=== PATIENT | female | born 2000 | race Caucasian/White ===

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

== ENCOUNTER 2023-02-24 23:37 | Emergency (ER) | payer OTHER, SELFPAY ==
[2023-02-24 23:50] VITALS: BP 139/89; PULSE 85; RESP 17; TEMP 36.6; O2SAT 99; BMI 25.1
[2023-02-24 23:53] VITALS: BMI 25.1
--- NOTE | 2023-02-24 23:53 | PC.NURSE ---
verbal orders received
[2023-02-24 23:54] VITALS: BP 126/77; BP 130/82; BP 139/79; PULSE 105; PULSE 80; PULSE 88
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
[2023-02-24 23:59] LABS: Microscopic, Urine URINE MICROSCOPIC (MICROSCOPIC)
[2023-02-25 00:02] LABS: Appearance,Urine CLOUDY (Clear); Basophils % 0.3 % (0.1-2.0); Bilirubin,Urine Negative (Negative); Blood, Urine TRACE-I (Negative); Color,Urine YELLOW (Yellow); Eosinophils # 0.1 K/mm3 (0.0-0.4); Eosinophils % 0.5 % (0.1-12.0); Glucose,Urine (UA) Negative (Negative); Hematocrit 42.1 % (37.0-47.0); Hemoglobin 13.9 g/dL (12.2-16.2); Ketones,Urine 1+ (Negative); Leukocyte Esterase,Urine 3+ (Negative); Lymphocytes # 2.3 K/mm3 (0.7-4.5); Lymphocytes % 21.8 % (10-50); Mean Corpuscular HGB Conc 33.1 g/dL (31.8-35.4); Mean Corpuscular Hemoglobin 30.6 pg (27.0-31.2); Mean Corpuscular Volume 92.6 fl (81-99); Mean Platelet Volume 8.4 fl (7.4-10.4); Monocytes # 0.4 K/mm3 (0.1-1.0); Monocytes % 3.9 % (1.7-9.3); Neutrophils # 7.7 K/mm3 (1.8-7.8); Neutrophils % 73.5 % (37.0-80.0); Nitrate,Urine Negative (Negative); PH,Urine 6.5 (5.0-8.5); Platelet Count 309 K/mm3 (142-424); Protein,Urine Negative (Negative); Red Blood Count 4.55 M/mm3 (4.20-5.40); Red Cell Distribution Width 13.3 % (11.5-17.5); Specific Gravity, Urine 1.015 (1.005-1.030); Urine Pregnancy, HCG Qual. Positive (Negative); Urobilinogen,Urine 0.2 EU/dl (0.2); White Blood Count 10.4 K/mm3 (4.5-13.0)
[2023-02-25 00:03] LABS: Chloride 100 mmol/L (98-107); Potassium 3.9 mmoL/L (3.5-5.1); Sodium 136 mmol/L (136-145)
[2023-02-25 00:07] LABS: Alanine Aminotransferase 23 U/L (12-78); Albumin Level 4.6 g/dl (3.5-5.0); Albumin/Globulin Ratio 1.2 (1.1-1.8); Alkaline Phosphatase 62 U/L (38-126); Anion Gap 16.9 mEq/L (5-15); Aspartate Amino Transferase 30 U/L (14-36); Bilirubin,Total 0.5 mg/dl (0.2-1.3); Blood Urea Nitrogen 5 mg/dl (7-17); Calcium 9.5 mg/dl (8.4-10.2); Carbon Dioxide 23 mmol/L (22.0-30.0); Creatinine Clearance Estimated 273 mL/min (50-200); Estimated Glomerular Filt Rate 203 ml/min (>60); GFR (African American) 246 ML/MIN (>60); Globulin 3.8 g/dL (1.3-3.2); Glucose 99 mg/dl (74-100); Total Protein,Serum 8.4 g/dl (6.3-8.2)
[2023-02-25 00:12] LABS: Bacteria,Urine 3+ /lpf
[2023-02-25 00:13] LABS: RBC,Urine Occasional #/hpf (0-3); Squamous Epithelial Cell,Urine 20-50 #/hpf (0-5); WBC,Urine 20-50 #/hpf (0-3)
[2023-02-25 00:48] LABS: HCG,Quantitative 149290 mIU/ml (0-5.42)
[2023-02-25 01:32] VITALS: BP 114/74; BP 116/67; BP 121/72; PULSE 63; PULSE 67; PULSE 74
--- NOTE | 2023-02-25 01:34 | PC.NURSE ---
Rounded on pt. Pt advised symptoms remain the same. No other needs voiced at this time.
[2023-02-25 01:56] VITALS: BP 114/74; PULSE 774; RESP 16; TEMP 36.9
== END 2023-02-25 02:06 | disposition home or self-care (01) ==
PROVIDERS: Emergency Provider Emergency Medicine; PCP Emergency Medicine
DX: O21.1 Hyperemesis gravidarum with metabolic disturbance (principal); Z3A.09 9 weeks gestation of pregnancy
CPT/HCPCS: 80053; 81001; 81025; 84702; 85025; 87086; 87088; 87186; 96360; 96361; 99284; 99285

== ENCOUNTER 2023-07-22 17:33 | Outpatient (CLI) | payer OTHER, SELFPAY ==
[2023-07-22 17:56] VITALS: BMI 28.2
[2023-07-22 18:02] LABS: Microscopic, Urine URINE MICROSCOPIC (MICROSCOPIC)
[2023-07-22 18:08] VITALS: BP 131/84; PULSE 112; RESP 18; TEMP 37.2; O2SAT 98; BMI 28.2
[2023-07-22 18:17] LABS: Amphetamine/Metha Screen,Urine Negative ng/ml (<1000); Barbiturates Screen,Urine Negative ng/ml (<200)
[2023-07-22 18:18] LABS: Benzodiazepines Screen,Urine Negative ng/ml (<200); Cannabinoid Screen,Urine Negative ng/ml (<50)
[2023-07-22 18:19] LABS: Cocaine Screen,Urine Negative ng/ml (<300)
[2023-07-22 18:20] LABS: Methadone Screen,Urine Negative ng/ml (<300); Opiate Screen,Urine Negative ng/ml (<300)
[2023-07-22 18:21] LABS: Phencyclidine Screen,Urine Negative ng/ml (<25)
[2023-07-22 18:30] LABS: Bacteria,Urine 2+ /lpf
[2023-07-22 18:33] LABS: Color,Urine Yellow (Yellow)
[2023-07-22 18:34] LABS: Appearance,Urine Clear (Clear); Blood, Urine Negative (Negative); Glucose,Urine (UA) Negative (Negative); Ketones,Urine 1+ (Negative); Nitrate,Urine Negative (Negative); Protein,Urine 1+ (Negative); Specific Gravity, Urine >= 1.030 (1.005-1.030)
[2023-07-22 18:35] LABS: Bilirubin,Urine 1+ (Negative); Leukocyte Esterase,Urine 1+ (Negative); Urobilinogen,Urine 0.2 EU/dl (0.2)
== END 2023-07-22 19:05 | disposition home or self-care (01) ==
LOC: OBOUT 17:37 → OB 17:38
PROVIDERS: Visit Provider Obstetrics & Gynecology
DX: O26.893 Other specified pregnancy related conditions, third trimester (principal); Z3A.31 31 weeks gestation of pregnancy; R11.2 Nausea with vomiting, unspecified
CPT/HCPCS: 59025; 80305; 81001; 87086; 96365; G0463; J2405

== ENCOUNTER 2023-07-31 16:38 | Outpatient (CLI) | payer OTHER, SELFPAY ==
[2023-07-31 17:13] VITALS: BP 136/78; PULSE 95; RESP 18; TEMP 36.9; O2SAT 97; BMI 28.5
[2023-07-31 17:18] LABS: Microscopic, Urine URINE MICROSCOPIC (MICROSCOPIC)
[2023-07-31 17:46] LABS: Appearance,Urine CLEAR (Clear); Bilirubin,Urine Negative (Negative); Blood, Urine Negative (Negative); Color,Urine YELLOW (Yellow); Glucose,Urine (UA) Negative (Negative); Ketones,Urine Negative (Negative); Leukocyte Esterase,Urine 1+ (Negative); Nitrate,Urine Negative (Negative); PH,Urine 6.5 (5.0-8.5); Protein,Urine Negative (Negative); Specific Gravity, Urine 1.025 (1.005-1.030); Urobilinogen,Urine 0.2 EU/dl (0.2)
--- NOTE | 2023-07-31 17:55 | ECG_ITS ---
APPROVED REPORT Exam: Resting ECG HR:87 bpm ECG Measurements Heart Rate 87 AXES GA 157 P 28 QRSd 87 QRS 20 QT 342 T 3 QTc 387 Conclusion SINUS RHYTHM NORMAL ECG UNCONFIRMED REPORT Electronically signed by : Octavio Ferro MD 08/01/2023 13:23:05
[2023-07-31 18:00] LABS: Amphetamine/Metha Screen,Urine Negative ng/ml (<1000); Barbiturates Screen,Urine Negative ng/ml (<200)
[2023-07-31 18:01] LABS: Benzodiazepines Screen,Urine Negative ng/ml (<200); Cannabinoid Screen,Urine Negative ng/ml (<50)
[2023-07-31 18:02] LABS: Cocaine Screen,Urine Negative ng/ml (<300)
[2023-07-31 18:03] LABS: Methadone Screen,Urine Negative ng/ml (<300); Opiate Screen,Urine Negative ng/ml (<300)
[2023-07-31 18:04] LABS: Phencyclidine Screen,Urine Negative ng/ml (<25)
[2023-07-31 18:08] LABS: Squamous Epithelial Cell,Urine Occasional #/hpf (0-5); WBC,Urine Occasional #/hpf (0-3)
== END 2023-07-31 18:40 | disposition home or self-care (01) ==
LOC: OBOUT 16:40 → OB 16:41
PROVIDERS: Visit Provider Obstetrics & Gynecology
DX: O47.03 False labor before 37 completed weeks of gestation, third trimester (principal); Z3A.32 32 weeks gestation of pregnancy
CPT/HCPCS: 59025; 80305; 81001; 87086; 93005; 96365; G0463

== ENCOUNTER → 2023-08-03 13:34 | Outpatient (CLI) | payer OTHER, SELFPAY ==
--- NOTE | 2023-08-03 13:36 | US_ITS ---
FINAL REPORT TECHNIQUE: Ultrasound images of the kidneys and bladder were obtained. CLINICAL HISTORY: CVAT FINDINGS: The right kidney measures 12.6 cm in length. It is normal in echogenicity. There is no hydronephrosis. The left kidney measures 11.3 cm in length. It is normal in echogenicity. There is no hydronephrosis. The spleen is unremarkable. IMPRESSION: Unremarkable renal ultrasound. Reviewed, Interpreted and Dictated by Carlos Jimenez III, MD Transcribed by Shanti Pate Authenticated and [facility]
== END ==
PROVIDERS: Visit Provider Obstetrics & Gynecology
DX: I63.9 Cerebral infarction, unspecified (principal)
CPT/HCPCS: 76770

== ENCOUNTER → 2023-08-08 10:17 | Outpatient (CLI) | payer OTHER, SELFPAY | PROVIDERS: PCP Obstetrics & Gynecology; Visit Provider Obstetrics & Gynecology | DX: Z34.93 Encounter for supervision of normal pregnancy, unspecified, third trimester (principal); Z3A.33 33 weeks gestation of pregnancy | CPT/HCPCS: 87086 ==

== ENCOUNTER 2023-08-09 17:53 | Outpatient (CLI) | payer OTHER, SELFPAY ==
[2023-08-09 18:35] VITALS: BMI 29.0
[2023-08-09 18:46] LABS: Microscopic, Urine URINE MICROSCOPIC (MICROSCOPIC)
[2023-08-09 18:58] LABS: Fetal Membrane Rupture (Rapid) Negative (Negative)
[2023-08-09 19:21] VITALS: BP 129/69; PULSE 96; RESP 16; TEMP 36.7; O2SAT 97; BMI 29.0
[2023-08-09 19:22] LABS: Appearance,Urine CLEAR (Clear); Bilirubin,Urine Negative (Negative); Blood, Urine Negative (Negative); Color,Urine YELLOW (Yellow); Glucose,Urine (UA) Negative (Negative); Ketones,Urine Negative (Negative); Leukocyte Esterase,Urine 2+ (Negative); Nitrate,Urine Negative (Negative); Protein,Urine Negative (Negative); Specific Gravity, Urine 1.015 (1.005-1.030); Urobilinogen,Urine 0.2 EU/dl (0.2)
[2023-08-09 19:23] LABS: Benzodiazepines Screen,Urine Negative ng/ml (<200)
[2023-08-09 19:24] LABS: Amphetamine/Metha Screen,Urine Negative ng/ml (<1000); Barbiturates Screen,Urine Negative ng/ml (<200)
[2023-08-09 19:25] LABS: Cocaine Screen,Urine Negative ng/ml (<300); Methadone Screen,Urine Negative ng/ml (<300)
[2023-08-09 19:26] LABS: Cannabinoid Screen,Urine Negative ng/ml (<50)
[2023-08-09 19:27] LABS: Opiate Screen,Urine Negative ng/ml (<300); Squamous Epithelial Cell,Urine Occasional #/hpf (0-5); WBC,Urine Occasional #/hpf (0-3)
[2023-08-09 19:28] LABS: Phencyclidine Screen,Urine Negative ng/ml (<25)
== END 2023-08-09 20:05 | disposition home or self-care (01) ==
LOC: OBOUT 17:55 → OB 17:56
PROVIDERS: Visit Provider Obstetrics & Gynecology
DX: O26.893 Other specified pregnancy related conditions, third trimester (principal); Z3A.33 33 weeks gestation of pregnancy
CPT/HCPCS: 59025; 80305; 81001; 84112; 87086; G0463

== ENCOUNTER → 2023-08-10 13:59 | Outpatient (CLI) | payer OTHER, SELFPAY ==
--- NOTE | 2023-08-10 14:04 | US_ITS ---
PROCEDURE: US OB BIOPHYSICAL PROFILE CLINICAL INDICATION: IUGR COMPARISON: No prior studies. FINDINGS: Transabdominal sonographic images of the uterus were obtained. From her established due date she is 33weeks 5days. The following parameters are obtained: Viable fetus in the cephalic presentation with an anterior placenta grade 2 Average ultrasound age is 33weeks 4days. Estimated due date by ultrasound is 09/24/2023. Estimated weight is 4lb 8oz, 2065 grams. Cervix measures 3.0 cm. heart rate: 169bpm bpm. BPD: 33 weeks 6 days HC: 34 weeks 3 days AC: 32 weeks 0 days FL: 6 33 weeks 4 days HC/AC: 1.1 FL/BPD: 0.78 FL/AC: 0.23 20 percentile Amniotic fluid index: 10.71cm, MVP 3.8 cm. Qualitative AFV: 2 breathing movements: 2 Gross body movements: 2 Tone: 2 Biophysical profile score: 8 Doppler evaluation of the umbilical artery: SD ratio: 2.4-3.02 Resistive index: 0.67 No obvious anomalies evident.Kidneys, profile, nasion, stomach, four-chamber heart, three-vessel cord appear normal. IMPRESSION: 1. Viable fetus in the cephalic presentation with an anterior placenta grade 2. 2. The fluid is within normal limits with an amniotic fluid index of 10.71 cm, MVP 3.8 cm. 3. Biophysical profile 8/8 with good breathing movement seen. 4. SD ratio 2.4-3.02, normal. 5. There has been good interval growth but the AC is currently about 2 weeks behind. Dictated by: Burke Ramos MD 08/12/2023 09:24 Burke Ramos MD in [place] 08/12/2023 09:24
== END ==
PROVIDERS: Visit Provider Obstetrics & Gynecology
DX: O36.5930 Maternal care for other known or suspected poor fetal growth, third trimester, not applicable or unspecified (principal); Z3A.35 35 weeks gestation of pregnancy
CPT/HCPCS: 76816; 76819; 76820

== ENCOUNTER → 2023-08-17 13:32 | Outpatient (CLI) | payer OTHER, SELFPAY ==
--- NOTE | 2023-08-17 13:32 | US_ITS ---
PROCEDURE: US OB BIOPHYSICAL PROFILE CLINICAL INDICATION: IUGR COMPARISON: Ultrasound 08/10/2023 FINDINGS: Transabdominal sonographic images of the uterus were obtained. From her established due date she is 34weeks 5days. The following parameters are obtained: Viable fetus in the cephalic presentation with an anterior placenta grade 2 Cervix measures 3.0 cm. heart rate: 143 bpm Amniotic fluid index: 9.57cm, MVP 3.72 cm Qualitative AFV: 2 breathing movements: 2 Gross body movements: 2 Tone: 2 Biophysical profile score: 8 No obvious anomalies evident.Kidneys, profile, nasion, bladder, stomach, four-chamber view, three-vessel cord appear normal. IMPRESSION: 1. Viable fetus in the cephalic presentation with anterior placenta grade 2. 2. The fluid is within normal limits with an amniotic fluid index of 9.57 cm, and BPD 3.72 cm. 3. Biophysical profile 8/8 with good breathing movement and movement seen. Dictated by: Burke Ramos MD 08/19/2023 11:12 Burke Ramos MD in [facility] 08/19/2023 11:12
== END ==
LOC: RAD 13:32
PROVIDERS: PCP Obstetrics & Gynecology; Visit Provider Obstetrics & Gynecology
DX: O36.5930 Maternal care for other known or suspected poor fetal growth, third trimester, not applicable or unspecified (principal); Z3A.34 34 weeks gestation of pregnancy
CPT/HCPCS: 76819

== ENCOUNTER → 2023-08-22 23:15 | Outpatient (CLI) | payer OTHER, SELFPAY | LOC: LAB.DROPOF 23:15 | PROVIDERS: PCP Obstetrics & Gynecology; Visit Provider Obstetrics & Gynecology | DX: Z34.93 Encounter for supervision of normal pregnancy, unspecified, third trimester (principal); Z3A.35 35 weeks gestation of pregnancy | CPT/HCPCS: 86403 ==

== ENCOUNTER → 2023-08-24 12:58 | Outpatient (CLI) | payer OTHER, SELFPAY ==
--- NOTE | 2023-08-24 12:59 | US_ITS ---
PROCEDURE: US OB BIOPHYSICAL PROFILE CLINICAL INDICATION: IUGR COMPARISON: Ultrasounds 08/10/2023, 08/17/2023 FINDINGS: Transabdominal sonographic images of the uterus were obtained. From her established due date she is 35weeks 5days. The following parameters are obtained: Viable fetus in the cephalic presentation with an anterior placenta grade 2 heart rate: 150bpm bpm. Amniotic fluid index: 5.79cm MVP 3.07 cm, maximum pocket 3.07 cm x 2.8 cm. Qualitative AFV: 2 breathing movements: 2 Gross body movements: 2 Tone: 2 Biophysical profile score: 8 No obvious anomalies evident.Kidneys, four-chamber heart, three-vessel cord appear normal. IMPRESSION: 1. Viable fetus in the cephalic presentation with an anterior placenta grade 2. 2. The fluid is slightly low with an amniotic fluid index of 5.79 cm. MVP 3.07 cm, maximum pocket 3.07 cm x 2.8 cm. 3. Biophysical profile / with good breathing movement seen and good movement seen. Dictated by: Burke Ramos MD 08/26/2023 12:54 Burke Ramos MD in [facility] 08/26/2023 12:54
== END ==
LOC: RAD 12:59
PROVIDERS: PCP Obstetrics & Gynecology; Visit Provider Obstetrics & Gynecology
DX: O36.5930 Maternal care for other known or suspected poor fetal growth, third trimester, not applicable or unspecified (principal); Z3A.35 35 weeks gestation of pregnancy
CPT/HCPCS: 76819

== ENCOUNTER 2023-08-31 13:06 | Outpatient (CLI) | payer OTHER, SELFPAY ==
--- NOTE | 2023-08-31 13:06 | US_ITS ---
PROCEDURE: US OB BIOPHYSICAL PROFILE CLINICAL INDICATION: iugr COMPARISON: Ultrasound 08/10/2023 FINDINGS: Transabdominal sonographic images of the uterus were obtained. From her established due date she is 36weeks 5days. The following parameters are obtained: Viable fetus in the cephalic presentation with an anterior placenta grade 2 Average ultrasound age is 36weeks 0 days. Estimated due date by ultrasound is 09/28/2023. Estimated weight is 5lb 13oz, 2646 grams. Cervix measures 3.4 cm transvaginally. heart rate: 140bpm BPD: 36 weeks 3 days HC: 36 weeks 3 days AC: 34 weeks 2 days FL: 36 weeks 4 days HC/AC: 1.06 Cephalic index: FL/BPD: 0.79 FL/AC: 0.24 20 percentile Amniotic fluid index: 7.55cm, MVP 3.3 cm. Qualitative AFV: 2 breathing movements: 2 Gross body movements: 2 Tone: 2 Biophysical profile score: 8 Doppler evaluation of the umbilical artery: SD ratio: 2.52-2.59 Resistive index: 0.61 No obvious anomalies evident.Kidneys, bladder, stomach, four-chamber heart, three-vessel cord appear normal. IMPRESSION: 1. Viable fetus in the cephalic presentation with an anterior placenta grade 2. 2. The fluid is within normal limits with an amniotic fluid index of 7.55 cm, MVP 3.3 cm. 3. There has been good interval growth with the fetus currently 20th percentile. 4. Biophysical profile 04/03 with good breathing movement and movement seen. Dictated by: Burke Ramos MD 09/01/2023 14:43 Burke Ramos MD in [facility] 09/01/2023 14:43
== END 2023-08-31 23:59 ==
LOC: RAD 13:06
PROVIDERS: PCP Obstetrics & Gynecology; Visit Provider Obstetrics & Gynecology
DX: O36.5930 Maternal care for other known or suspected poor fetal growth, third trimester, not applicable or unspecified (principal)
CPT/HCPCS: 76816; 76819; 76820

== ENCOUNTER 2023-08-31 18:10 | Outpatient (CLI) | payer OTHER, SELFPAY ==
[2023-08-31 19:21] VITALS: BMI 28.9
[2023-08-31 19:25] VITALS: BP 117/76; PULSE 84; RESP 17; TEMP 36.9; O2SAT 98; BMI 28.9
[2023-08-31 19:25] LABS: Microscopic, Urine URINE MICROSCOPIC (MICROSCOPIC)
[2023-08-31 19:26] LABS: Fetal Membrane Rupture (Rapid) Negative (Negative)
[2023-08-31 19:29] LABS: Appearance,Urine CLEAR (Clear); Bilirubin,Urine Negative (Negative); Blood, Urine Negative (Negative); Color,Urine YELLOW (Yellow); Glucose,Urine (UA) Negative (Negative); Ketones,Urine Negative (Negative); Leukocyte Esterase,Urine TRACE (Negative); Nitrate,Urine Negative (Negative); Protein,Urine Negative (Negative); Specific Gravity, Urine <= 1.005 (1.005-1.030); Urobilinogen,Urine 0.2 EU/dl (0.2)
[2023-08-31 19:56] LABS: Bacteria,Urine Trace /lpf; Squamous Epithelial Cell,Urine Occasional #/hpf (0-5); WBC,Urine Occasional #/hpf (0-3)
[2023-08-31 20:00] LABS: Amphetamine/Metha Screen,Urine Negative ng/ml (<1000); Barbiturates Screen,Urine Negative ng/ml (<200)
[2023-08-31 20:55] LABS: Benzodiazepines Screen,Urine Negative ng/ml (<200); Cannabinoid Screen,Urine Negative ng/ml (<50); Cocaine Screen,Urine Negative ng/ml (<300); Methadone Screen,Urine Negative ng/ml (<300); Opiate Screen,Urine Negative ng/ml (<300); Phencyclidine Screen,Urine Negative ng/ml (<25)
== END 2023-08-31 20:02 | disposition home or self-care (01) ==
LOC: OBOUT 18:12 → OB 18:13
PROVIDERS: Visit Provider Obstetrics & Gynecology
DX: O47.03 False labor before 37 completed weeks of gestation, third trimester (principal); Z3A.36 36 weeks gestation of pregnancy
CPT/HCPCS: 59025; 80307; 81001; 84112; G0463

== ENCOUNTER 2023-09-07 13:53 | Outpatient (CLI) | payer OTHER, SELFPAY ==
--- NOTE | 2023-09-07 13:53 | US_ITS ---
PROCEDURE: US OB BIOPHYSICAL PROFILE CLINICAL INDICATION: IUGR COMPARISON: Ultrasound 08/31/2023 FINDINGS: Transabdominal sonographic images of the uterus were obtained. From her established due date she is 37weeks 5days. The following parameters are obtained: Viable fetus in the cephalic presentation with an anterior placenta grade 2 heart rate: 146bpm Amniotic fluid index: 5.52cm Qualitative AFV: 2 breathing movements: 0 Gross body movements: 2 Tone: 2 Biophysical profile score: 6 No obvious anomalies evident.Kidneys, bladder, stomach, four-chamber view, three-vessel cord appear normal. IMPRESSION: 1. Viable fetus in the cephalic presentation with an anterior placenta grade 2. 2. The fluid is low with an amniotic fluid index of 5.5 cm. 3. Biophysical profile is 6/8 with no breathing movement seen today. 4. Dr. Monroe was notified of the results. Dictated by: Burke Ramos MD 09/08/2023 12:28 Burke Ramos MD in [facility] 09/08/2023 12:28
== END 2023-09-07 23:59 ==
LOC: RAD 13:53
PROVIDERS: PCP Obstetrics & Gynecology; Visit Provider Obstetrics & Gynecology
DX: O36.5990 Maternal care for other known or suspected poor fetal growth, unspecified trimester, not applicable or unspecified (principal)
CPT/HCPCS: 76819

== ENCOUNTER 2023-09-07 17:23 | Inpatient (IN) | payer OTHER, SELFPAY ==
[2023-09-07 15:35] VITALS: BMI 29.0
[2023-09-07 15:37] VITALS: BP 128/82; PULSE 89; RESP 16; TEMP 36.9; O2SAT 96; BMI 29.0
[2023-09-07 16:12] LABS: Microscopic, Urine URINE MICROSCOPIC (MICROSCOPIC)
[2023-09-07 16:14] LABS: Basophils % 0.4 % (0.1-2.0); Eosinophils # 0.1 K/mm3 (0.0-0.4); Eosinophils % 0.4 % (0.1-12.0); Hematocrit 31.1 % (37.0-47.0); Hemoglobin 10.6 g/dL (12.2-16.2); Lymphocytes # 1.9 K/mm3 (0.7-4.5); Lymphocytes % 18.6 % (10-50); Mean Corpuscular HGB Conc 34.1 g/dL (31.8-35.4); Mean Corpuscular Hemoglobin 30.7 pg (27.0-31.2); Mean Platelet Volume 9.2 fl (7.4-10.4); Monocytes # 0.5 K/mm3 (0.1-1.0); Monocytes % 4.8 % (1.7-9.3); Neutrophils # 7.7 K/mm3 (1.8-7.8); Neutrophils % 75.7 % (37.0-80.0); Platelet Count 358 K/mm3 (142-424); Red Blood Count 3.46 M/mm3 (4.20-5.40); Red Cell Distribution Width 13.7 % (11.5-17.5); White Blood Count 10.2 K/mm3 (4.5-13.0)
[2023-09-07 16:16] LABS: Appearance,Urine CLEAR (Clear); Blood, Urine Negative (Negative); Color,Urine YELLOW (Yellow); Glucose,Urine (UA) Negative (Negative); Ketones,Urine Negative (Negative); Leukocyte Esterase,Urine 2+ (Negative); Nitrate,Urine Negative (Negative); PH,Urine 6.5 (5.0-8.5); Protein,Urine TRACE (Negative); Specific Gravity, Urine 1.025 (1.005-1.030); Urobilinogen,Urine 0.2 EU/dl (0.2)
[2023-09-07] MEDS: DINOPROSTONE 10MG VAG INSERT 10 MG VG (16:17)
[2023-09-07 16:20] LABS: Bilirubin,Urine 1+ (Negative)
[2023-09-07 16:30] LABS: Amphetamine/Metha Screen,Urine Negative ng/ml (<1000)
[2023-09-07 16:31] LABS: Barbiturates Screen,Urine Negative ng/ml (<200)
[2023-09-07 16:32] LABS: Benzodiazepines Screen,Urine Negative ng/ml (<200); Cannabinoid Screen,Urine Negative ng/ml (<50)
[2023-09-07 16:33] LABS: Cocaine Screen,Urine Negative ng/ml (<300); Methadone Screen,Urine Negative ng/ml (<300)
[2023-09-07 16:34] LABS: Bacteria,Urine 3+ /lpf; Opiate Screen,Urine Negative ng/ml (<300); Squamous Epithelial Cell,Urine 20-50 #/hpf (0-5)
[2023-09-07 16:35] LABS: Phencyclidine Screen,Urine Negative ng/ml (<25)
--- NOTE | 2023-09-07 19:13 | P.HP_ITS ---
History of Present Illness *Admission Date: 09/07/23 *Reason for visit:: Small for gestational age , oligohydramnios *History of present illness: She is a 22-year-old 1 para 0 at 37 and 5 weeks gestational age. She had an ultrasound today that showed that she was small for gestational age and there was minimal fluid. As result of that she is admitted for induction of labor and delivery. O+ blood, Rubella nonimmune Group B strep negative. [facility] Disclaimer: The information contained in this section may have been updated after the patient was seen, as this information can be updated by other users. Medical History Hyperemesis gravidarum IUGR (intrauterine growth restriction) Surgical History Marana teeth removed Family History No significant family history Social History Smoking Status: Former smoker alcohol intake: never substance use type: denies use current occupational status: unemployed Travel in the last 8 weeks: None Review of Systems Review of Systems Review of systems:: pertinent systems reviewed and negative unless documented below Meds Home Medications and Allergies Home Medications Medication Instructions Recorded Confirmed Type ondansetron 4 mg disintegrating 4 mg PO Q8H #20 tabs 07/22/23 09/07/23 Rx tablet nystatin 100,000 unit/gram topical 1 applic topical BID #60 grams 08/22/23 09/04/23 Rx powder New Prescriptions to Start Prescriptions: Allergies Allergy/AdvReac Type Severity Reaction Status Date / Time Penicillins Allergy Rash Verified 09/04/23 10:56 Exam Data for Last 24 hours Vital signs and Labs for Last 24 Hours: Temp Pulse Resp BP Pulse Ox O2 Del Method 98.4 F 89 16 128/82 96 Room Air 09/07/23 15:37 09/07/23 15:37 09/07/23 15:37 09/07/23 15:37 09/07/23 15:37 09/07/23 15:37 Laboratory Results - last 24 hr 09/07/23 15:32: Urine Color Yellow, Urine Appearance Clear, Urine pH 6.5, Ur Specific Transfer 1.025, Urine Protein Trace, Urine Glucose (UA) Negative, Urine Ketones Negative, Urine Blood Negative, Urine Nitrate Negative, Urine Bilirubin 1+ A, Urine Urobilinogen 0.2, Ur Leukocyte Esterase 2+ A, Urine RBC 3-5, Urine WBC 10-20, Ur Squamous Epith Cells 20-50, Urine Bacteria 3+, Urine Opiates Screen Negative, Urine Methadone Screen Negative, Ur Barbituates Screen Negative, Ur Phencyclidine Scrn Negative, Ur Amphetamines Screen Negative, U Benzodiazepines Scrn Negative, Urine Cocaine Screen Negative, U Marijuana (THC) Screen Negative 09/07/23 16:01: WBC 10.2, RBC 3.46 L, Hgb 10.6 L, Hct 31.1 L, MCV 90.0, MCH 30.7, MCHC 34.1, RDW 13.7, Plt Count 358, MPV 9.2, Neut % (Auto) 75.7, Lymph % (Auto) 18.6, [place] % (Auto) 4.8, Eos % (Auto) 0.4, Baso % (Auto) 0.4, Neut # (Auto) 7.7, Lymph # (Auto) 1.9, [place] # (Auto) 0.5, Eos # (Auto) 0.1, Baso # (Auto) 0.0, Blood Type O Positive, Antibody Screen Negative I & O for Last 24 hours: Intake & Output 09/05/23 09/06/23 09/07/23 09/08/23 11:59 11:59 11:59 11:59 Weight 197 lb Constitutional Constitutional: no acute distress *Routine HEENT Exam Head: Present normocephalic Eye: Present EOMI and PERRL ENT: Present mucous membranes moist *Routine Neck Exam Neck: Present supple; Absent lymphadenopathy *Routine Respiratory Exam Respiratory: Present CTA bilaterally *Routine Cardiovascular Exam Cardiovascular: Present RRR *Routine Abdominal Exam Abdominal: Present soft and normoactive bowel sounds; Absent tenderness *Routine Rectal Exam Rectal:: deferred *Routine Genitalia Exam Genitalia:: deferred *Routine Extremities Exam Extremities: Absent cyanosis, clubbing or edema *Routine Skin Exam Skin: Present warm; Absent rash *Routine Neurological Exam Neurological: Present alert and oriented X3 Assessment and Plan *Assessment and plan (1) IUGR (intrauterine growth restriction): Status: Acute Category: Medical (2) Oligohydramnios antepartum: Status: Acute Qualifiers: Fetus number: single or unspecified fetus Qualified Code(s): O41.00X0 - Oligohydramnios, unspecified trimester, not applicable or unspecified Category: Medical Code(s): O41.00X0 - Oligohydramnios, unspecified trimester, not applicable or unspecified Plan She is admitted for induction of labor at 37 weeks and 5 days. She has oligohydramnios and a small for gestational age infant. We have inserted Cervidil. We will expect a vaginal delivery.
[2023-09-07] MEDS: DEXTROSE 5%-LACTATED RINGERS 1,000 ML 125 ML IV (22:35)
[2023-09-07] MEDS: BUTORPHANOL TARTRATE 1 MG/ML VIAL IV (22:36)
[2023-09-08] MEDS: BUTORPHANOL TARTRATE 1 MG/ML VIAL IV ×2 (01:46→05:10)
[2023-09-08] MEDS: LACTATED RINGERS 1000ML 1,000 ML 500 ML IV (04:04)
[2023-09-08] MEDS: OXYTOCIN/RINGERS LACTATE 30 UNITS/500 ML BAG IV (04:05)
[2023-09-08] MEDS: DEXTROSE 5%-LACTATED RINGERS 1,000 ML 125 ML IV (06:31)
--- NOTE | 2023-09-08 09:38 | EXP.ANES.CKL ---
[facility] Disclaimer: The information contained in this section may have been updated after the patient was seen, as this information can be updated by other users. Medical History Hyperemesis gravidarum IUGR (intrauterine growth restriction) Surgical History Foley teeth removed Family History No significant family history Social History Smoking Status: Former smoker alcohol intake: never substance use type: denies use current occupational status: unemployed Travel in the last 8 weeks: None [facility] Anesthesia Checklist Patient Identification Patient Identification: Arm Band Structural Data Admitted From: Inpatient Planned Operative Procedure/s: Labor Epidural Consent for Planned Operative Procedure(s) Verified: Yes Verified Documents: Surgical Consent and History and Physical Additional verifications Anesthesia Reactions: No Airway Assessment Mallampati Score:: Class II C-Spine Mobility Assessed: Yes TMJ Mobility Assessed: Yes Dentition: Good Dentition Neurological Assessment Level of Consciousness: Awake and Alert Anesthesia Plan Anesthesia Risk discussed: Yes Anesthesia Plan: Verified ASA Class: II Anesthesia Type: Epidural
--- NOTE | 2023-09-08 09:42 | EXP.LABOR.NO ---
Labor Note Subjective: Date: 09/08/23 Time: 09:42 regular contraction Objective: NST:: Reactive Contractions:: every 2-3 minutes Cervical Dilation:: 2 Effacement:: 50% Station: -2 Membranes: artificially ruptured Comment:: I ruptured her membranes and there was clear fluid. Fetus: Monitoring?: Yes monitoring type:: Internal and External Comment:: I inserted an IUPC. Assessment: Labor progressing?: Yes Cephalopelvic disproportion?: No Plan: Anesthesia for epidural?: Yes Continue to labor down?: Yes Plan for ?: No Continue to monitor?: Yes Start pushing?: No Comment:: She had Cervidil overnight and is now 2 cm dilated. She is having contractions every 2 to 3 minutes. She is receiving oxytocin. We will expect a vaginal delivery. There seems to be enough room for the baby.
--- NOTE | 2023-09-08 12:54 | EXP.LABOR.NO ---
Labor Note Subjective: Date: 09/08/23 Time: 12:54 regular contraction Objective: NST:: Reactive Contractions:: every 2-3 minutes Cervical Dilation:: 4 Effacement:: 80% Station: -1 Membranes: artificially ruptured Fetus: Monitoring?: Yes monitoring type:: Internal and External Assessment: Labor progressing?: Yes Cephalopelvic disproportion?: No Plan: Anesthesia for epidural?: Yes Continue to labor down?: Yes Plan for ?: No Continue to monitor?: Yes Start pushing?: No Comment:: The cervix has thinned out and the baby's head is come down. She is now 4 cm. We will expect a vaginal delivery. There seems to be enough room in the pelvis.
[2023-09-08] MEDS: DEXTROSE 5%-LACTATED RINGERS 1,000 ML 500 ML IV (14:33)
[2023-09-08] MEDS: ONDANSETRON 4MG/2ML VIAL 4 MG IV (15:54)
--- NOTE | 2023-09-08 16:03 | EXP.LABOR.NO ---
Labor Note Subjective: Date: 09/08/23 Time: 16:03 regular contraction Objective: NST:: Reactive Contractions:: every 2-3 minutes Cervical Dilation:: 9-10 Effacement:: 100% Station: +3 Membranes: artificially ruptured Fetus: Monitoring?: Yes monitoring type:: Internal and External Assessment: Labor progressing?: Yes Cephalopelvic disproportion?: No Plan: Anesthesia for epidural?: Yes Continue to labor down?: Yes Plan for ?: No Continue to monitor?: Yes Start pushing?: Yes Comment:: She is fully dilated and station +3. We will go ahead and start pushing and expect a vaginal delivery.
[2023-09-08] MEDS: OXYTOCIN/RINGERS LACTATE 30 UNITS/500 ML BAG 999 UNITS IV (16:17)
[2023-09-08] MEDS: OXYTOCIN/RINGERS LACTATE 30 UNITS/500 ML BAG 40 UNITS IV ×2 (16:32→18:56)
--- NOTE | 2023-09-08 16:32 | P.PCN_ITS ---
Delivery Note Delivery Date:: 09/08/23 Delivery Time:: 16:15 Anesthesia Type: Epidural Was labor medically induced?: Yes Induction method: other Gestational age (weeks): 37 delivered prior to 39 weeks?: Yes Justification for early elective delivery:: IUGR and Oligohydraminos Gender: Female at 1 minute: 8 at 5 minutes: 9 LAC or MLE?: LAC Delivery Procedure:: She is a 22-year-old 1 para 0 at 37 and 5 weeks gestational age. She was brought in for induction of labor due to oligohydramnios and IUGR. On the evening of September 07 she received vaginal Cervidil and this was kept in overnight. She was started on IV oxytocin had her membranes ruptured. Under labor epidural she progressed to full dilation and delivered spontaneously a liveborn female child at 4:15 PM in the afternoon of September 08, 2023. On deliver the head it was noted that there was a loose nuchal cord which was easily reduced. This was followed by the anterior shoulder and the rest the infant's body atraumatically. The baby was vigorous and we allowed the cord to continue to pulsate for approximately 1 minute. The oropharynx and nasopharynx were bulb suction. The cord was then doubly clamped and cut and the infant was placed on the mother's abdomen for further care. The nurses assigned Apgars of 8 at 1 minute and 9 at 5 minutes. Then obtained cord blood. Using gentle traction on the cord and countertraction the fundus I was able to easily deliver the placenta intact 3 minutes after delivery. He had a normal three-vessel cord. She had a small second-degree perineal laceration that was repaired with interrupted 3-0 Vicryl Rapide suture. She has O+ blood, she is rubella nonimmune and was group B streptococcus negative. 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 Her estimated blood loss was approximately 550 cc. I did give her 1 dose of Methergine. Laceration:: vaginal Placental Delivery Description: Spontaneous
[2023-09-08] MEDS: METHYLERGONOVINE MALEATE 0.2MG/ML INJ 0.200000000000000011 MG IM (16:40)
[2023-09-08 18:28] VITALS: BP 166/104
[2023-09-08] MEDS: LABETALOL 20MG/4ML SYRINGE 20 MG IV (18:28)
[2023-09-08 18:58] VITALS: BP 130/87
[2023-09-08 19:24] VITALS: BP 147/87; PULSE 92; RESP 17; TEMP 37.7; O2SAT 99
[2023-09-08] MEDS: ACETAMINOPHEN 500MG TAB 1000 MG PO (19:33)
[2023-09-08] MEDS: IBUPROFEN 400 MG TABLET 800 MG PO (20:16)
[2023-09-08] MEDS: BENZOCAINE-MENTHOL SPRAY 56GM CAN TP (20:17)
[2023-09-08 20:24] VITALS: BP 145/86; PULSE 103
[2023-09-08 21:24] VITALS: BP 118/60; PULSE 90
[2023-09-08 22:24] VITALS: BP 135/71; PULSE 76; RESP 17; TEMP 36.9
[2023-09-09 00:11] VITALS: BP 108/60; PULSE 79; RESP 17; TEMP 36.6
[2023-09-09 04:10] VITALS: BP 100/58; PULSE 75; RESP 17; TEMP 36.7; O2SAT 97
[2023-09-09] MEDS: ACETAMINOPHEN 500MG TAB 1000 MG PO ×3 (04:14→18:01)
[2023-09-09] MEDS: IBUPROFEN 400 MG TABLET 800 MG PO ×3 (04:15→20:23)
[2023-09-09 08:27] LABS: Hematocrit 26.1 % (37.0-47.0); Hemoglobin 8.7 g/dL (12.2-16.2)
[2023-09-09] MEDS: PRENATAL MULTIVITAMIN W/IRON 1 EACH PO (16:42)
[2023-09-09] MEDS: LANOLIN CREAM 40GM TP (16:42)
[2023-09-09] MEDS: WITCH HAZEL 40 PADS/BOX 1 EACH TP (18:01)
[2023-09-09 19:50] VITALS: BP 129/82; PULSE 81; RESP 20; TEMP 36.7; O2SAT 100
[2023-09-10] MEDS: ACETAMINOPHEN 500MG TAB 1000 MG PO ×2 (01:07→04:11)
[2023-09-10 04:22] VITALS: BP 129/73; PULSE 69; RESP 20; TEMP 36.6; O2SAT 99
--- NOTE | 2023-09-10 07:33 | EXP.ACUTE.PN ---
Subjective *Date: 09/09/23 *Time: 12:00 Interval history: She is 1 day from a vaginal delivery. She is doing very well. She is eating and drinking and ambulating. Her pain is well-controlled. Her lochia is normal. She did have a spike in her blood pressure last night and we did give her 20 mg IV of labetalol. This was after she had received Methergine. She is doing better this morning. Her hemoglobin is slightly low at 8.7. She started at 10.6. Medical Exam Vital signs and Labs for Last 24 Hours: Vital Signs Temp Pulse Resp BP Pulse Ox O2 Del Method 09/10/23 04:22 97.9 F 69 20 129/73 99 Room Air 09/09/23 19:50 98.0 F 81 20 129/82 100 Room Air Intake and Output 09/09/23 09/10/23 09/10/23 19:59 03:59 11:59 Intake Total 360 / 360 Output Total 0 / 0 Balance 360 / 360 Intake: Intake, Oral Amount 360 / 360 Output: Output, Urine Amount 0 / 0 Other: Number of Unmeasured Voids 1 Laboratory Results - last 24 hr 09/09/23 08:03: Hgb 8.7 L, Hct 26.1 L I & O for Labs for Last 24 Hours: Intake & Output 09/07/23 09/08/23 09/09/23 09/10/23 11:59 11:59 11:59 11:59 Intake Total 360 / 360 Output Total 0 / 0 Balance 360 / 360 Weight 197 lb Head: Present atraumatic ENT: Present normal exam Neck: Present normal inspection Respiratory: Present normal respiratory effort; Absent accessory muscle use Assessment and Plan *Assessment and plan (1) Oligohydramnios antepartum: Status: Acute Qualifiers: Fetus number: single or unspecified fetus Qualified Code(s): O41.00X0 - Oligohydramnios, unspecified trimester, not applicable or unspecified Category: Medical Code(s): O41.00X0 - Oligohydramnios, unspecified trimester, not applicable or unspecified (2) IUGR (intrauterine growth restriction): Status: Acute Category: Medical (3) Normal delivery at term: Status: Acute Category: Medical Code(s): O80 - Encounter for full-term uncomplicated delivery (4) Anemia, : Status: Acute Category: Medical Code(s): O90.81 - Anemia of the puerperium Plan She is doing very well this morning. She is eating and drinking and ambulating. Her lochia is normal. She is somewhat anemic but she is asymptomatic. We will plan to send her home tomorrow.
[2023-09-10 08:30] VITALS: BP 116/66; PULSE 78; RESP 18; TEMP 36.9; O2SAT 100
--- NOTE | 2023-09-10 09:13 | P.DS_ITS ---
General Admission date:: 09/08/23 Discharge date: 09/10/23 HPI HPI HPI: She is a 22-year-old 1 para 0 at 37 and 5 weeks gestational age. She had an ultrasound today that showed that she was small for gestational age and there was minimal fluid. As result of that she is admitted for induction of labor and delivery. O+ blood, Rubella nonimmune Group B strep negative. Hospital Course Hospital Course Hospital Course: On September 07, 2023 she had Cervidil placed in the evening. The following morning she was started on IV oxytocin had her membranes ruptured. Under labor epidural she progressed to full dilation and delivered spontaneously a liveborn female child at 4:15 PM in the afternoon of September 08, 2023. The baby weighed 6 pounds 0 ounces and had Apgars of 8 at 1 minute and 9 at 5 minutes. She had a small second-degree posterior vaginal tear. She has done well and has remained afebrile with her hospitalization. She is eating and drinking and ambulating. She is pumping her breasts. She has O+ blood. She is rubella nonimmune and was group B streptococcus negative. 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 She is discharged home to follow-up with Dr. Monroe in approximately 2 weeks time. She will continue with her vitamins and iron. We have given her prescription for iron. She was given the usual instructions with respect to limiting her activity, driving and sexual activity. Her condition on discharge is stable and improved. Exam Data for Last 24 hours Vital signs and Labs for Last 24 Hours: Temp Pulse Resp BP Pulse Ox O2 Del Method 98.5 F 78 18 116/66 100 Room Air 09/10/23 08:30 09/10/23 08:30 09/10/23 08:30 09/10/23 08:30 09/10/23 08:30 09/10/23 08:30 I & O for Last 24 hours: Intake & Output 09/07/23 09/08/23 09/09/23 09/10/23 11:59 11:59 11:59 11:59 Intake Total 360 / 360 Output Total 0 / 0 Balance 360 / 360 Weight 197 lb Microbiology Reports for the Last 24 Hours: Microbiology 09/07/23 15:32 Urine,Clean Catch Urine Culture - Final Constitutional Constitutional: no acute distress *Routine HEENT Exam Head: Present normocephalic *Routine Neck Exam Neck: Present supple and full ROM *Routine Respiratory Exam Respiratory: Present normal respiratory effort; Absent accessory muscle use DS: Diagnosis Discharge Diagnosis (1) Oligohydramnios antepartum: Status: Acute Code(s): O41.00X0 - Oligohydramnios, unspecified trimester, not applicable or unspecified Qualifiers: Fetus number: single or unspecified fetus Qualified Code(s): O41.00X0 - Oligohydramnios, unspecified trimester, not applicable or unspecified (2) IUGR (intrauterine growth restriction): Status: Acute (3) Normal delivery at term: Status: Acute Code(s): O80 - Encounter for full-term uncomplicated delivery (4) Anemia, : Status: Acute Code(s): O90.81 - Anemia of the puerperium Meds Home Medications and Allergies Home Medications Medication Instructions Recorded Confirmed Type nitrofurantoin 100 mg PO DAILY UTI PREVENTION 09/08/23 09/08/23 History monohydrate/macrocrystals 100 mg capsule nystatin 100,000 unit/gram topical 0 applic topical BID Antifungal 09/08/23 09/08/23 History powder ferrous sulfate 325 mg (65 mg 325 mg PO DAILY #30 tabs 09/10/23 Rx iron) tablet (Iron (ferrous sulfate)) New Prescriptions to Start Prescriptions: ferrous sulfate [Iron (ferrous sulfate)] Burke Ramos Allergies Allergy/AdvReac Type Severity Reaction Status Date / Time Penicillins Allergy Rash Verified 09/04/23 10:56 Discharge Plan Disposition Patient Disposition: Home, Self-Care Discharge Order Discharge Orders: Discharge Order (Routine); Ordered 09/10/23 Ordered By: Burke Ramos Follow up Plan Prescriptions/Medication Reconciliation: New ferrous sulfate [Iron (ferrous sulfate)] 325 mg (65 mg iron) Tablet 325 mg PO DAILY Qty: 30 2RF Continued nystatin 100,000 unit/gram powder 0 applic TOPICAL BID Rx Instructions: APPLY TOPICALLY TO THE AFFECTED AREA TWICE DAILY nitrofurantoin monohyd/m-cryst 100 mg capsule 100 mg PO DAILY Patient Comments: TAKE 1 CAPSULE BY MOUTH DAILY Rx Instructions: TO TAKE UNTIL DELIVERY. Problem Reconciliation Problems Reviewed?: Yes Patient Discharge Instructions ACTIVITY: No heavy lifting DIET: continue same diet Providers Primary Care Provider: Provider,Referral Admit Provider: Burke Ramos Attending Provider: Burke Ramos
[2023-09-10] MEDS: MEASLES,MUMPS,RUBELLA VACCINE VIAL 0.5 ML SQ (10:43)
[2023-09-10] MEDS: IBUPROFEN 400 MG TABLET 800 MG PO (10:43)
== END 2023-09-10 13:10 | disposition home or self-care (01) | DRG 806 ==
LOC: OBOUT 09-25 07:49 → OB 09-25 07:50
PROVIDERS: Obstetrics & Gynecology; Admitting Provider Nurse Practitioner Obstetrics & Gynecology; Visit Provider Nurse Practitioner Obstetrics & Gynecology
DX: O69.81X0 Labor and delivery complicated by cord around neck, without compression, not applicable or unspecified (principal); O41.03X0 Oligohydramnios, third trimester, not applicable or unspecified; Z37.0 Single live birth; O70.1 Second degree perineal laceration during delivery; Z3A.37 37 weeks gestation of pregnancy; O90.81 Anemia of the puerperium; O36.5930 Maternal care for other known or suspected poor fetal growth, third trimester, not applicable or unspecified
CPT/HCPCS: 59409; 36415; 59025; 76819; 80307; 81001; 85014; 85018; 85025; 86850; 87086; 90707; 94761; 96372; C1758; G0283; J0595; J2405

== ENCOUNTER 2023-11-01 17:25 | Outpatient (CLI) | payer OTHER, SELFPAY ==
[2023-11-01 17:41] LABS: MANUAL DIFFERENTIAL MANUAL DIFFERENTIAL (MANUAL DIFF)
[2023-11-01 18:12] LABS: Basophils # 0.1 K/mm3 (0-0.2); Basophils % 1.4 % (0.1-2.0); Eosinophils # 0.2 K/mm3 (0.0-0.4); Eosinophils % 2.3 % (0.1-12.0); Hematocrit 38.7 % (37.0-47.0); Hemoglobin 12.2 g/dL (12.2-16.2); Lymphocytes # 3.3 K/mm3 (0.7-4.5); Lymphocytes % 51.3 % (10-50); Mean Corpuscular HGB Conc 31.5 g/dL (31.8-35.4); Mean Corpuscular Hemoglobin 28.8 pg (27.0-31.2); Mean Corpuscular Volume 91.3 fl (81-99); Mean Platelet Volume 7.9 fl (7.4-10.4); Monocytes # 0.3 K/mm3 (0.1-1.0); Monocytes % 4.4 % (1.7-9.3); Neutrophils # 2.6 K/mm3 (1.8-7.8); Neutrophils % 40.6 % (37.0-80.0); Platelet Count 412 K/mm3 (142-424); Red Blood Count 4.24 M/mm3 (4.20-5.40); Red Cell Distribution Width 14.9 % (11.5-17.5); White Blood Count 6.5 K/mm3 (4.8-10.8)
[2023-11-01 19:42] LABS: Eosinophils % 4 % (0-3); Lymphocytes % 51 % (10-50); Monocytes % 4 % (2-9); Neutrophils % 41 % (42-76); Platelet Estimate Normal; RBC Morphology Normal; Total Cells Counted 100
== END 2023-11-01 23:59 ==
PROVIDERS: PCP Obstetrics & Gynecology; Visit Provider Obstetrics & Gynecology
DX: O90.81 Anemia of the puerperium (principal)
CPT/HCPCS: 36415; 85007; 85014; 85018; 85048; 85049

== ENCOUNTER 2025-06-25 22:33 | Emergency (ER) | payer OTHER, SELFPAY ==
[2025-06-25 22:36] VITALS: BP 137/86; PULSE 90; RESP 20; TEMP 36.9; O2SAT 99; BMI 31.3
--- NOTE | 2025-06-25 22:40 | PC.NURSE ---
Pt states she is 6 weeks Denies vaginal bleeding
[2025-06-25 22:59] VITALS: BP 151/69; PULSE 71; RESP 18; TEMP 37.1; O2SAT 95
[2025-06-25 23:07] LABS: Bilirubin,Urine Negative (Negative); Color,Urine YELLOW (Yellow); Glucose,Urine (UA) Negative (Negative); Ketones,Urine Negative (Negative); Leukocyte Esterase,Urine TRACE (Negative); Microscopic, Urine URINE MICROSCOPIC (MICROSCOPIC); PH,Urine 6.0 (5.0-8.5); Protein,Urine Negative (Negative); Specific Gravity, Urine 1.015 (1.005-1.030); Urobilinogen,Urine 0.2 EU/dl (0.2)
[2025-06-25 23:08] LABS: Hematocrit 40.8 % (37.0-47.0); Hemoglobin 13.9 g/dL (12.2-16.2); Immature Granulocytes % 0.2 %; Mean Corpuscular HGB Conc 34.1 g/dL (31.8-35.4); Mean Corpuscular Hemoglobin 31.1 pg (27.0-31.2); Mean Corpuscular Volume 91.3 fl (81-99); Nucleated Red Blood Cells % 0 %; Platelet Count 353 K/mm3 (142-424); Red Blood Count 4.47 M/mm3 (4.20-5.40); Red Cell Distribution Width-SD 40.2 fL; White Blood Count 10.2 K/mm3 (4.8-10.8)
[2025-06-25] MEDS: ONDANSETRON 4MG/2ML VIAL 4 MG IV (23:11)
[2025-06-25 23:14] LABS: Alanine Aminotransferase 26 U/L (12-78); Albumin Level 4.0 g/dl (3.5-5.0); Albumin/Globulin Ratio 0.9 (1.1-1.8); Alkaline Phosphatase 83 U/L (38-126); Anion Gap 13.7 mEq/L (5-15); Aspartate Amino Transferase 46 U/L (14-36); Bilirubin,Total 0.5 mg/dl (0.2-1.3); Blood Urea Nitrogen 6 mg/dl (7-17); Calcium 9.8 mg/dl (8.4-10.2); Carbon Dioxide 23 mmol/L (22.0-30.0); Chloride 102 mmol/L (98-107); Creatinine Clearance Estimated 217 mL/min (50-200); Creatinine,Serum 0.60 mg/dl (0.52-1.04); Estimated Glomerular Filt Rate 125 ml/min (>60); GFR (African American) 151 ML/MIN (>60); Globulin 4.4 g/dL (1.3-3.2); Glucose 98 mg/dl (74-100); Lipase 31 U/L (23-300); Potassium 3.7 mmoL/L (3.5-5.1); Sodium 135 mmol/L (136-145); Total Protein,Serum 8.4 g/dl (6.3-8.2)
[2025-06-25 23:17] LABS: Bacteria,Urine 3+ /lpf; RBC,Urine Occasional #/hpf (0-3)
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
[2025-06-25] MEDS: NITROFURANTOIN 100MG CAPSULE 100 MG PO (23:35)
--- NOTE | 2025-06-26 00:05 | US_ITS ---
PROCEDURE INFORMATION: Exam: US , Transvaginal Exam date and time: 06/26/2025 12:35 AM Age: 24 years old Clinical indication: complicated by abdominal or pelvic pain; Left lower quadrant; First trimester (<14 weeks 0 days); Gestational age or lmp: Lmp: 05/06/2025; ; Additional info: Llq pain, hcg 27,000 LABS AND CLINICAL REPORTS: Last menstrual period start date: 05/06/2025 Gestational age (Established): 7 w 2 d Estimated due date (Established): 02/10/2026 TECHNIQUE: Imaging protocol: Real-time transvaginal obstetrical ultrasound of the maternal pelvis with image documentation. Transvaginal imaging was used for better evaluation of the fetus, adnexa, and/or cervix. COMPARISON: US OB BIOPHYSICAL PROFILE 09/07/2023 1:59 PM FINDINGS: Gestation: Intrauterine gestation sac measuring 2.5 x 0.8 x 2.4 cm. Yolk sac measures 3.3 mm. heart rate: 105 bpm BIOMETRY: Gestational age (AUA): 5 w 6 d Estimated due date (AUA): 02/20/2026 [place] rump length (CRL): 2.32 mm. MATERNAL: Right ovary/adnexa: Right ovary measures 2.98 cm x 2.22 cm x 2.76 cm. Right ovarian volume is 9.56 mL. Left ovary/adnexa: Left ovary measures 2.56 cm x 1.42 cm x 1.39 cm. Left ovarian volume is 2.65 mL. IMPRESSION: 1. Single intrauterine gestation with an estimated gestational age of 5 weeks and 6 days. 2. heart rate at the lower limits of normal.
[2025-06-26 00:16] LABS: Hepatitis C Ab Qual. W/ RFX NEGATIVE (Negative)
[2025-06-26] MEDS: DOXYLAMINE 10MG/PYRIDOXINE 10MG TABLET 1 TAB PO (01:45)
[2025-06-26 01:46] VITALS: BP 128/78; PULSE 78; RESP 20; TEMP 37.1; O2SAT 98
== END 2025-06-26 01:50 | disposition home or self-care (01) ==
PROVIDERS: Student in an Organized Health Care Education/Training Program; Emergency Provider Emergency Medicine
DX: O26.891 Other specified pregnancy related conditions, first trimester (principal); R10.32 Left lower quadrant pain; R82.71 Bacteriuria; Z3A.01 Less than 8 weeks gestation of pregnancy
CPT/HCPCS: 76817; 80053; 81001; 83605; 83690; 84702; 85025; 86803; 87086; 87389; 87491; 87591; 87661; 96374; 99284; J2405

== ENCOUNTER 2025-07-30 14:31 | Outpatient (CLI) | payer OTHER, SELFPAY ==
[2025-07-30 14:53] LABS: Hematocrit 37.5 % (37.0-47.0); Hemoglobin 13.1 g/dL (12.2-16.2); Immature Granulocytes % 0.1 %; Mean Corpuscular HGB Conc 34.9 g/dL (31.8-35.4); Mean Corpuscular Hemoglobin 31.6 pg (27.0-31.2); Mean Corpuscular Volume 90.4 fl (81-99); Nucleated Red Blood Cells % 0 %; Platelet Count 308 K/mm3 (142-424); Red Blood Count 4.15 M/mm3 (4.20-5.40); Red Cell Distribution Width-SD 40.7 fL; White Blood Count 7.8 K/mm3 (4.8-10.8)
[2025-07-30 16:24] LABS: Hepatitis C Ab Qual. W/ RFX NEGATIVE (Negative)
[2025-07-31 07:10] LABS: Hepatitis B Surface Antigen Negative (Negative)
[2025-07-31 08:16] LABS: Rubella Antibodies, IgG 1.39 index (Immune >0.99)
[2025-07-31 12:23] LABS: RPR W/RFX Titers Nonreactive (Nonreactive)
[2025-08-03 19:10] LABS: Neisseria gonorrhoeae, NAA Negative (Negative)
== END 2025-07-30 23:59 | disposition home or self-care (01) ==
LOC: LAB 14:31
PROVIDERS: PCP Emergency Medicine; Visit Provider Obstetrics & Gynecology
DX: O26.891 Other specified pregnancy related conditions, first trimester (principal); R10.9 Unspecified abdominal pain
CPT/HCPCS: 36415; 85025; 86592; 86762; 86787; 86803; 86850; 87340; 87389; 87491; 87591

== ENCOUNTER 2025-08-12 12:40 | Emergency (ER) | payer OTHER, SELFPAY ==
[2025-08-12 12:49] VITALS: BP 134/87; PULSE 81; RESP 20; TEMP 36.5; O2SAT 99; BMI 30.4
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
[2025-08-12 13:06] VITALS: PULSE 78; O2SAT 99
--- NOTE | 2025-08-12 13:11 | US_ITS ---
PROCEDURE INFORMATION: Exam: US , Transvaginal Exam date and time: 08/12/2025 1:28 PM Age: 24 years old Clinical indication: complicated by abdominal or pelvic pain; Lower; First trimester (<14 weeks 0 days); Gestational age or lmp: 13w; ; Additional info: 13 weeks lower abdominal pain TECHNIQUE: Imaging protocol: Real-time transvaginal obstetrical ultrasound of the maternal pelvis with image documentation. Transvaginal imaging was used for better evaluation of the fetus, adnexa, and/or cervix. COMPARISON: US OB TRANSVAGINAL 06/26/2025 12:35 AM FINDINGS: Gestation: Single live intrauterine gestation with estimated gestational age of approximately 13 weeks 3 days by ultrasound and 12 weeks 5 days by last menstrual period. Yolk sac 8 mm. heart rate: heart rate 161 bpm. BIOMETRY: Estimated due date (AUA): Estimated due date 02-14-26 by ultrasound and 02-19-26 last menstrual period. [place] rump length (CRL): [place]-rump length of approximately 7.15 cm. Thirteen weeks 3 days. MATERNAL: Cervix: Cervical length of approximately 3.5 cm. Right ovary/adnexa: Right ovary 2.9 x 1.8 x 2.8 cm. Doppler arterial and venous flow. Left ovary/adnexa: Left ovary 2.1 x 3.6 x 1.2 cm. Doppler arterial flow. Other findings: Incomplete fusion of the chorion and amnion; . IMPRESSION: 1. Single live intrauterine gestation with estimated gestational age of approximately 13 weeks 3 days by ultrasound and 12 weeks 5 days by last menstrual period. 2. heart rate 161 bpm.
[2025-08-12 13:31] VITALS: BP 117/75; PULSE 75; O2SAT 99
[2025-08-12] MEDS: SODIUM CHLORIDE 0.9% 25ML BAG 25 ML IV (13:36)
[2025-08-12] MEDS: PROMETHAZINE HCL 25MG/ML 1ML VIAL 12.5 MG IV (13:36)
[2025-08-12 13:37] LABS: Hematocrit 36.1 % (37.0-47.0); Hemoglobin 12.4 g/dL (12.2-16.2); Immature Granulocytes % 0.2 %; Mean Corpuscular HGB Conc 34.3 g/dL (31.8-35.4); Mean Corpuscular Hemoglobin 31.3 pg (27.0-31.2); Mean Corpuscular Volume 91.2 fl (81-99); Nucleated Red Blood Cells % 0 %; Platelet Count 266 K/mm3 (142-424); Red Blood Count 3.96 M/mm3 (4.20-5.40); Red Cell Distribution Width-SD 41.6 fL; White Blood Count 8.7 K/mm3 (4.8-10.8)
[2025-08-12 13:38] LABS: Microscopic, Urine URINE MICROSCOPIC (MICROSCOPIC)
[2025-08-12 13:39] LABS: INR 1.02 (0.9-1.1); Prothrombin Time 11.3 seconds (10.1-12.5)
[2025-08-12 13:40] LABS: Albumin Level 4.2 g/dl (3.5-5.0); Chloride 106 mmol/L (98-107)
[2025-08-12 13:41] LABS: Potassium 3.9 mmoL/L (3.5-5.1); Sodium 131 mmol/L (136-145)
[2025-08-12 13:43] LABS: Alanine Aminotransferase 13 U/L (12-78); Albumin/Globulin Ratio 1.4 (1.1-1.8); Alkaline Phosphatase 57 U/L (38-126); Anion Gap 7.9 mEq/L (5-15); Aspartate Amino Transferase 21 U/L (14-36); Bilirubin,Total 0.3 mg/dl (0.2-1.3); Blood Urea Nitrogen 8 mg/dl (7-17); Carbon Dioxide 21 mmol/L (22.0-30.0); Creatinine Clearance Estimated 211 mL/min (50-200); Creatinine,Serum 0.60 mg/dl (0.52-1.04); Estimated Glomerular Filt Rate 125 ml/min (>60); GFR (African American) 151 ML/MIN (>60); Globulin 3.1 g/dL (1.3-3.2); Total Protein,Serum 7.3 g/dl (6.3-8.2)
--- NOTE | 2025-08-12 13:43 | PC.NURSE ---
Pt taken for US
[2025-08-12 13:44] LABS: Calcium 9.0 mg/dl (8.4-10.2); Glucose 93 mg/dl (74-100); Lipase 24 U/L (23-300)
--- OUTSIDE RECORDS SUMMARY | 2025-08-12 13:52 | XMS_ITS | Clinical Summary ---
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/2025 Ganglion of left wrist 02/09/2025 Social History Tobacco Use Types Packs/Day Years Used Date Smoking Tobacco: Some Days Cigarettes 0.3 0.6 Started: 04/15/2024; Last attempted to quit: 11/27/2024 Tobacco Cessation:Ready to Q uit: Not Asked; Counseling Given: Not Answered Alcohol Use Standard Drinks/Week Comments Not Currently 0 (1 standard drink = 0.6 oz pur e alcohol) Comments Unknown Sex and Gender Information Value Date Recorded Sex Assigned at Not on file Legal Sex Female 9:50 AM EDT Gender Identity Not on file Sexual Orientation Not on file Last Filed Vital Signs Vital Sign Reading Time Taken Comments Blood Pressure 102/70 03/12/2025 8:48 AM EDT Pulse - - Temperature - - Respiratory Rate - - Oxygen Saturation - - Inhaled Oxygen Concentration - - Weight 91.2 kg (201 lb) 03/12/2025 8:48 AM EDT Height 172.7 cm (5' 7.99 ) 03/12/2025 8:48 AM ED T Body Mass Index 30.57 03/12/2025 8:48 AM EDT Plan of Treatment Health Maintenance Due Date Last Done Comments Annual Gynecologic Pelvic an d Breast Exam 2002 MENINGOCOCCAL B VACCINE (1 o f 2 - Standard) 2018 Pneumococcal Vaccine 0-49 (1 of 2 - PCV) 2021 PAP SMEAR 2023 ANNUAL PHYSICAL 02/09/2025 CHLAMYDIA SCREENING 02/09/2025 02/14/2023 INFLUENZA VACCINE 03/27/2025 TDAP/TD VACCINES (3 - Td or Tdap) 07/04/2033 023, 12/13/2015 MENINGOCOCCAL VACCINE Completed 10/11/2018, 016 HPV VACCINES Completed 01/17/2019, 09/27, 07/16/2018 HEPATITIS C SCREENING Completed 02/14/2023, 023 Insurance [facility] Care Teams Charging Board Operator Relationship Specialty Start Date End Date Kenny Chun MD [address] [place] [id number] PCP - General Emergency Medicine 02/03/25
[2025-08-12 13:57] LABS: Color,Urine YELLOW (Yellow); Glucose,Urine (UA) Negative (Negative); Ketones,Urine TRACE (Negative); Leukocyte Esterase,Urine 1+ (Negative); PH,Urine 6.0 (5.0-8.5); Protein,Urine TRACE (Negative); Specific Gravity, Urine 1.025 (1.005-1.030); Urobilinogen,Urine 0.2 EU/dl (0.2)
[2025-08-12 14:09] LABS: Bilirubin,Urine 1+ (Negative)
[2025-08-12 14:47] LABS: Bacteria,Urine 1+ /lpf
[2025-08-12 14:59] VITALS: BP 124/87; PULSE 85; RESP 15; TEMP 36.8; O2SAT 100
== END 2025-08-12 15:00 | disposition home or self-care (01) ==
PROVIDERS: Physician Assistant; Emergency Provider Student in an Organized Health Care Education/Training Program; PCP Emergency Medicine
DX: O26.891 Other specified pregnancy related conditions, first trimester (principal); R10.9 Unspecified abdominal pain; E87.1 Hypo-osmolality and hyponatremia; R11.2 Nausea with vomiting, unspecified; R82.71 Bacteriuria; Z3A.13 13 weeks gestation of pregnancy
CPT/HCPCS: 76817; 80053; 81001; 83690; 84702; 85025; 85610; 86900; 86901; 87086; 96374; 99285; J2550